=== PATIENT | female | born 1950 | race Caucasian/White ===

== ENCOUNTER 2018-08-04 12:14 | Emergency (ER) | payer MEDICARE, OTHER ==
[~2018-08-04] VITALS: Ht 152.4 cm; Wt 61.4 kg
[2018-08-04] MEDS ORDERED: CELE-193 PO (13:09)
[2018-08-04] MEDS ORDERED: TRAM50TA2 PO (13:09)
[2018-08-04 13:35] VITALS: BP 134/87
== END 2018-08-04 13:36 | disposition home or self-care (01) ==
LOC: ER 12:15
DX: M25.532 Pain in left wrist (principal); W18.39XA Other fall on same level, initial encounter; Y93.89 Activity, other specified; Y92.89 Other specified places as the place of occurrence of the external cause; Y99.8 Other external cause status
CPT/HCPCS: 29125; 73110; 99284